=== PATIENT | female | born 1995 | race Caucasian/White ===

== ENCOUNTER 2018-12-22 01:25 | Emergency (ER) | payer BC ==
[~2018-12-22] VITALS: Ht 165.1 cm; Wt 90.0 kg
[2018-12-22 01:30] VITALS: TEMP 98.5
[2018-12-22] MEDS ORDERED: OXYCODONE H5 MG/5 ML PO (02:09)
[2018-12-22] MEDS ORDERED: ZOFRAN ODT8 MG PO (02:09)
[2018-12-22 02:28] LABS: BASO % 0.3 % (0.0-2.0); EOS # 0.1 (0.0-0.7); EOS % 0.6 % (0-4.0); GRAN # 11.7 (1.4-6.5); GRAN % 78.2 % (42.2-75.2); HEMATOCRIT 42.1 % (37.0-47.0); HEMOGLOBIN 13.8 g/dl (12.5-16.0); LYMPH % 13.7 % (20.0-51.0); MEAN CELL VOLUME 88 fl (80.0-100.0); MEAN CORPUSCULAR HEMOGLOBIN 29 pg (27.0-31.0); MEAN CORPUSCULAR HGB CONC 33 g/dl (33.0-37.0); MEAN PLATELET VOLUME 9.7 fl (7.4-10.4); MONO % 6.8 % (1.7-9.3); PLATELET COUNT 434 K/mm3 (130-400); RED BLOOD COUNT 4.77 M/mm3 (4.10-5.30); REDCELL DISTRIBUTION WIDTH-CV 13.1 % (11.5-14.5)
[2018-12-22 02:39] LABS: CALCIUM 9.5 mg/dL (8.4-10.2); CREATININE, serum 0.89 (0.52-1.25)
[2018-12-22 03:44] VITALS: BP 110/65; PULSE 81
== END 2018-12-22 03:44 | disposition home or self-care (01) ==
LOC: COL.ER 01:25
PROVIDERS: Emergency Medicine
DX: J95.831 Postprocedural hemorrhage of a respiratory system organ or structure following other procedure (principal); Z90.89 Acquired absence of other organs
CPT/HCPCS: J7030